=== PATIENT | female | born 1990 | race American Indian/Alaskan Native ===

== ENCOUNTER 2021-01-09 01:14 | Emergency (ER) | payer SELFPAY ==
[2021-01-09 01:22] VITALS: BP 132/84
[2021-01-09 04:57] LABS: Basophils % (Auto) 0.3 % (0.0-1.8); Eosinophils % (Auto) 0.4 % (0.0-4.3); Hematocrit 43.3 % (30.3-42.9); Hemoglobin 14.1 gm/dl (10.1-14.3); Lymphocytes # (Auto) 2.6 K/mm3 (1.2-5.4); Lymphocytes % (Auto) 26.9 % (13.4-35.0); Mean Corpuscular HGB Conc 33 % (30-34); Mean Corpuscular Volume 99 fl (79-97); Monocytes # (Auto) 0.7 K/mm3 (0.0-0.8); Monocytes % (Auto) 7.1 % (0.0-7.3); Platelet Count 209 K/mm3 (140-440); Red Blood Count 4.37 M/mm3 (3.65-5.03); Red Cell Distribution Width 12.1 % (13.2-15.2)
[2021-01-09 05:08] LABS: Blood Urea Nitrogen 7 mg/dL (7-17); Calcium 9.3 mg/dL (8.4-10.2); Hemolysis Index 9
[2021-01-09 05:11] LABS: Bilirubin,Urine NEG (Negative); Blood,Urine NEG (Negative); Color,Urine Yellow (Yellow); Mucus,Urine FEW /HPF; Protein,Urine <15 mg/dL mg/dL (Negative); Urobilinogen,Urine < 2.0 mg/dL (<2.0)
[2021-01-09 05:11] LABS: BUN/Creatinine Ratio 12
[2021-01-09 05:14] LABS: HCG Qualitative,Urine Negative (Negative)
--- NOTE | 2021-01-09 05:15 | Cat Scan Report ---
CT HEAD WITHOUT CONTRAST INDICATION / CLINICAL INFORMATION: Altered Mental Status. TECHNIQUE: All CT scans at this location are performed using CT dose reduction for ALARA by means of automated exposure control. COMPARISON: None available. FINDINGS: BRAIN PARENCHYMA: No acute intracranial hemorrhage. No evidence of recent infarct. No mass effect or midline shift. VENTRICULAR SYSTEM/EXTRA-AXIAL SPACES: Ventricles are normal for age. No extra-axial fluid collection . ORBITS: Normal as visualized. SKELETAL SYSTEM/SOFT TISSUES: Normal bones and soft tissues. PARANASAL SINUSES/MASTOID AIR CELLS: No significant abnormality. ADDITIONAL FINDINGS: None. IMPRESSION: 1. No acute intracranial abnormality. Signer Name: Dilip Del Castillo MD Signed: 01/09/2021 5:10 AM Workstation Name: [id number]
[2021-01-09 05:21] LABS: Amphetamine Screen,Urine Negative; Benzodiazepines Screen,Urine Negative; Cannabinoid Screen,Urine Negative; Cocaine Screen,Urine Negative; Methadone Screen,Urine Negative; Opiate Screen,Urine Negative
--- NOTE | 2021-01-09 05:43 | Emergency Department Report ---
ED Psych HPI - General Chief Complaint: Psych Stated Complaint: MH Source: patient Mode of arrival: Ambulatory - History of Present Illness Initial Comments: This is a 30-year-old female here with complaints of bizarre behavior by patient's mother. Patient denies this but mother states that she has been going out at all times of the night including at 4 AM with very little close on elbows: Leaving the door open and appearing to talk to a person that is not there. She does not have any past medical history and does not have any history of mental illness although patient's mother states that mental illness runs in her family she has had occasional glass of wine but does not use any drugs. Patient reports that when she goes outside at 3:57 AM she is looking for her friend who is named Steve. Her mother has not met Steve and is unclear if Steve is a real person. Her mother notes that she also is not sleeping she is taking multiple books out and she also stated that her mother was "trying to take her face" - Related Data Home Medications Medication Instructions Recorded Confirmed Last Taken No Known Home Medications [No 01/09/21 01/09/21 Unknown Reported Home Medications] Allergies Allergy/AdvReac Type Severity Reaction Status Date / Time No Known Allergies Allergy Unverified 01/09/21 08:29 ED Review of Systems ROS: Stated complaint: MH Other details as noted in HPI Constitutional: denies: chills, fever Eyes: denies: eye pain ENT: denies: throat pain Respiratory: denies: orthopnea Cardiovascular: denies: orthopnea Endocrine: no symptoms reported Gastrointestinal: denies: abdominal pain, nausea, vomiting Genitourinary: as per HPI. denies: urgency, dysuria Musculoskeletal: denies: back pain Skin: denies: rash Neurological: denies: headache, weakness Psychiatric: as per HPI Hematological/Lymphatic: denies: easy bleeding ED Past Medical Hx - Past Medical History Previous Medical History?: No - Surgical History Past Surgical History?: No - Medications Home Medications: Home Medications Medication Instructions Recorded Confirmed Last Taken Type No Known Home Medications [No 01/09/21 01/09/21 Unknown History Reported Home Medications] ED Physical Exam - General Limitations: No Limitations General appearance: alert, in no apparent distress - Head Head exam: Present: atraumatic, normocephalic - Eye Eye exam: Present: normal appearance - ENT ENT exam: Present: normal exam - Neck Neck exam: Present: normal inspection - Respiratory Respiratory exam: Present: normal lung sounds bilaterally. Absent: respiratory distress - Cardiovascular Cardiovascular Exam: Present: regular rate, normal rhythm. Absent: systolic murmur, diastolic murmur, rubs, gallop - GI/Abdominal GI/Abdominal exam: Present: soft, normal bowel sounds - Rectal Rectal exam: Present: deferred - Extremities Exam Extremities exam: Present: normal inspection - Back Exam Back exam: Present: normal inspection - Neurological Exam Neurological exam: Present: alert, other (oriented to self/time/place) - Expanded Psychiatric Exam Expanded Focused psych exam: Present: delusional - Skin Skin exam: Present: warm, dry, intact, normal color. Absent: rash ED Course Vital Signs 01/09/21 01/09/21 01/09/21 01:18 05:42 08:45 Temperature 97.8 F 97.6 F 97.2 F L Pulse Rate 84 83 Respiratory 20 18 Rate Blood Pressure 132/84 O2 Sat by Pulse 100 100 Oximetry - Reevaluation(s) Reevaluation #1: 01/09/21 05:39 Patient is currently medically cleared. Labs and imaging are within normal limits. ED Medical Decision Making - Lab Data Result diagrams: 01/09/21 04:31 01/09/21 04:31 - Radiology Data Radiology results: report reviewed - Medical Decision Making Patient is a 30-year-old female brought in by her mother for bizarre behavior patient has been going outside at all times a night not sleeping and leaving the door open and possibly reacting to internal stimuli. Given this and given patient does not think she needs evaluation will plan for 1013 hold, mental health evaluation after labs and CT scan of the brain. Critical care attestation.: If time is entered above; I have spent that time in minutes in the direct care of this critically ill patient, excluding procedure time. ED Disposition Clinical Impression: Encounter for screening examination for mental health and behavioral disorders Disposition: HOME / SELF CARE / HOMELESS Is pt being admited?: No Does the pt Need Aspirin: No Condition: Stable Additional Instructions: Professional and Agency Contacts To help [facility] (07/09) [place] Crisis Line: Suicide Prevention Line: Crisis Text Line: Text START to 533511 Emergency: 911 Outpatient COMMUNITY Behavioral Health Resources: [facility]: [facility] [address] [place], [place] [address] [facility]: [facility] [address] [place] [address] Wednesday thru Wednesday - 8am - 5pm Call to schedule an assessment for mental health and substance abuse programs [facility]: [facility] Address: [address] [place] [address] Wednesday thru Wednesday- 7am-2pm [facility] Address: [address] [place] [address] Wednesday thru Wednesday: 8:30AM-5PM OUTPATIENT MENTAL HEALTH RESOURCES [facility], [facility] Jonathan Arora MD: [address] [place] [address], [address] [place] [address] [place] [address] [facility]: [facility] [address] [place] [address] [place] [address] [phone] [facility]: [facility] Healthcare: [address] [place] [address] [address] [place] [address] [place] [address] [facility] [address] [facility]: Elijah Rizzo MD: [address] [facility] [address] [facility] [id number] [facility]: [address] [place], [place] [id number] [phone] [place] CRISIS AND ACCESS LINE: Referrals: PRIMARY CARE, [Primary Care Provider] - 3-5 Days
--- NOTE | 2021-01-09 07:17 | Consultation ---
History of Present Illness - Reason for Consult Consult date: 01/09/21 Reason for consult: Mental health Eval - History of Present Psychiatric Illness The patient was seen today. She is a 30y/o female patient who was brought in by her mother for bizarre behavior. During the evaluation, the patient told me her mom brought her here for an evaluation. She is calm, and cooperative. She is pleasant and polite. The patient denies any bizarre behavior, but could possibly be delusional. She says "my mom was worried about me because I leave the house a lot." She says "I mean, but it wasn't what she thought." She says "then she was upset because I went in her car. I only put some books in her car." I asked the patient why was she going out so late, she says "see friends." The patient denies any past psych history or ever being on any psych medications. She says she lives her mom and has some college. The patient denies any SI/HI. She says "I have never been that," when asked. She also denies any fear or feeling of endangerment. She also denies hallucinations of any kind. PAST PSYCHIATRIC HISTORY: Diagnoses: Denies Suicide attempts or Self-harm behavior: Denies Prior psychiatric hospitalizations: Denies Substance Abuse history: Denies Previous psychiatric medications tried: Denies Outpatient treatment: Denies PAST MEDICAL HISTORY: None reported or document Family Psychiatric History: None reported or documented SOCIAL HISTORY Marital Status: Single Living Arrangements: Lives with someone Employment Status: Disabled Access to guns/weapons: Denies Education: History of Abuse: Denies Legal History: Denies REVIEW OF SYSTEMS Constitutional: Negative for weight loss ENT: Negative for stridor Respiratory: Negative for cough or hemoptysis All other systems reviewed and are negative MENTAL STATUS EXAMINATION General Appearance and Behavior: Age appropriate, good hygiene, wearing appropriate clothes. calm, cooperative Cooperation: cooperative Psychomotor Behavior: Psychomotor normal Mood: Fine Affect and affective range: congruent with stated mood Thought Process: goal directed Thought Content: None Speech: Normal tone and pace Suicidal Ideation: Denies Homicidal Ideation: Denies Hallucinations: Denies Delusions: none elicited Impulse Control: impaired Insight and Judgment: Limited Memory: limited Attention: Attentive Orientation: alert and oriented Assessment and Plan (1) Mental Health Evaluation Treatment Plan No medications at this time Sitter: per primary Medical: per primary Disposition: Do not recommend acute psychiatric inpatient treatment. The patient understands that if SI/HI or any fear of endangerment arise she is to seek immediate assistance. Cuff Slitter to further discuss safety plan and give the patient resources The patient to establish and follow up with outpatient psych for further eval Will sign off. Thanks Case staffed with Dr. Carr Mental Status Exam - Vital signs Last Vital Signs Temp 97.6 F 01/09/21 05:42 Pulse 83 01/09/21 05:42 Resp 18 01/09/21 05:42 BP 132/84 01/09/21 01:18 Pulse Ox 100 01/09/21 05:42 Results Result Diagrams: 01/09/21 04:31 01/09/21 04:31 Abnormal lab results 01/09/21 01/09/21 01/09/21 Range/Units 04:31 04:31 04:31 Hct 43.3 H (30.3-42.9) % MCV 99 H (79-97) fl RDW 12.1 L (13.2-15.2) % Sodium 136 L (137-145) mmol/L Salicylates < 0.3 L (2.8-20.0) mg/dL Acetaminophen (10.0-30.0) ug/mL 01/09/21 Range/Units 04:31 Hct (30.3-42.9) % MCV (79-97) fl RDW (13.2-15.2) % Sodium (137-145) mmol/L Salicylates (2.8-20.0) mg/dL Acetaminophen 5.0 L (10.0-30.0) ug/mL All other labs normal.
== END 2021-01-09 08:45 | disposition home or self-care (01) ==
LOC: ED 01:14
DX: R41.82 Altered mental status, unspecified (principal); Z13.30 Encounter for screening examination for mental health and behavioral disorders, unspecified; R46.89 Other symptoms and signs involving appearance and behavior
CPT/HCPCS: 36415; 70450; 80048; 80307; 80320; 81001; 81025; 84703; 85025; 99284; G0480